=== PATIENT | female | born 1980 | race Caucasian/White ===

== ENCOUNTER 2018-04-11 14:13 | Inpatient (IN) | payer MEDICAID ==
[2018-04-11] MEDS ORDERED: CARBOPROST 250 MCG INJ IM (15:30)
[2018-04-11] MEDS ORDERED: METHYLERGONOVINE 0.2 MG INJ IM (15:30)
[2018-04-11] MEDS ORDERED: LIDOCAINE 1% (MPF) 30 ML INJ INJ (15:30)
[2018-04-11] MEDS ORDERED: OXYTOCIN 30 UNITS/LR 500 ML IV ×2 (15:30)
[2018-04-11] MEDS ORDERED: MISOPROSTOL 200 MCG TAB PR (15:30)
[2018-04-11] MEDS: LACTATED RINGER'S 1,000 ML IV* ×2 (16:10→22:54)
[2018-04-11 16:34] LABS: ADD MAN DIFF? NO
[2018-04-11 16:37] LABS: BASOPHIL # 0.1 10^3/ul (0.0-0.1); BASOPHILS % 0.6 % (0.0-2.0); EOSINOPHILS % 0.3 % (0.0-7.0); HEMATOCRIT 38.7 % (37.0-47.0); HEMOGLOBIN 13.1 g/dl (12.0-16.0); IMMATURE GRANS #M 0.08 10^3/ul; IMMATURE GRANS % (M) 0.6 %; LYMPHOCYTES # 2.6 10^3/ul (0.8-2.9); LYMPHOCYTES % 20.1 % (15.0-51.0); MEAN CORPUSCULAR HEMOGLOBIN 27.6 pg (29.0-33.0); MEAN CORPUSCULAR HGB CONC 33.9 g/dl (32.0-37.0); MEAN CORPUSCULAR VOLUME 81.6 fl (82.0-101.0); MEAN PLATELET VOLUME 9.9 fl (7.4-10.4); MONOCYTE # 0.7 10^3/ul (0.3-0.9); MONOCYTES % 5.7 % (0.0-11.0); NEUTROPHIL # 9.2 10^3/ul (1.6-7.5); NEUTROPHILS % 72.7 % (39.0-77.0); PLATELET COUNT 305 10^3/UL (140-415); RED BLOOD COUNT 4.74 10^6/ul (4.20-5.40); RED CELL DISTRIBUTION WIDTH 15.3 % (11.5-14.5)
[2018-04-11 16:37] LABS: WHITE BLOOD COUNT 12.7 10^3/ul (4.8-10.8)
[2018-04-11 16:58] LABS: INR 0.91; PROTIME 12.3 Sec (11.9-14.9)
[2018-04-11 16:59] LABS: PARTIAL THROMBOPLASTIN TIME 29.9 Sec (25.0-35.0)
[2018-04-11 17:40] LABS: HEPATITIS B SURFACE ANTIGEN NEGATIVE (NEGATIVE)
[2018-04-12] MEDS: LACTATED RINGER'S 1,000 ML IV* ×3 (06:40→23:08)
[2018-04-12] MEDS: OXYTOCIN 30 UNITS/LR 500 ML IV ×6 (09:41→23:30)
[2018-04-12] MEDS: BUTORPHANOL 2 MG INJ IV (14:35)
[2018-04-12 19:14] LABS: RAPID PLASMA REAGIN NONREACTIVE (NR)
[2018-04-13] MEDS: BUTORPHANOL 2 MG INJ IV ×2 (01:45→07:29)
[2018-04-13] MEDS: OXYTOCIN 30 UNITS/LR 500 ML IV ×4 (03:00→18:10)
[2018-04-13] MEDS: LACTATED RINGER'S 1,000 ML IV* ×3 (07:16→10:51)
[2018-04-13] MEDS ORDERED: FENTAnyl 2MCG/ML-ROPIV 0.2% 100 ML (10:19)
[2018-04-13] MEDS ORDERED: KETOROLAC 30 MG INJ IV (10:30)
[2018-04-13] MEDS ORDERED: NALOXONE (0.4 MG/ML) INJ IV (10:30)
[2018-04-13] MEDS ORDERED: ONDANSETRON 4 MG INJ IV ×2 (10:30→16:00)
[2018-04-13] MEDS ORDERED: HYDROmorphONE 0.5 MG/0.5 ML SYG IV ×2 (10:30)
[2018-04-13] MEDS ORDERED: ZOLPIDEM 5 MG TAB PO (10:30)
[2018-04-13] MEDS ORDERED: DIPHENHYDRAMINE 50 MG INJ IV (10:30)
[2018-04-13] MEDS: FENTAnyl 2MCG/ML-ROPIV 0.2% 100 ML BAG EPI (11:17)
[2018-04-13] MEDS ORDERED: ACETAMINOPHEN 325 MG TAB PO (16:00)
[2018-04-13] MEDS ORDERED: DIBUCAINE 1% 30 GM OINT PR (16:00)
[2018-04-13] MEDS ORDERED: OXYCODONE/ASPIRIN (4.88/325) TAB PO ×2 (16:00)
[2018-04-13] MEDS: IBUPROFEN 600 MG TAB PO (18:09)
[2018-04-13] MEDS: LANOLIN 7 GM TUBE TOP (20:15)
[2018-04-13] MEDS: BENZOCAINE 20% 56 ML SPRAY TOP (20:15)
[2018-04-13] MEDS: HYDROCODONE/APAP (5/325) TAB PO (20:15)
[2018-04-13] MEDS: WITCH HAZEL/GLYCERIN PAD PR (20:15)
[2018-04-14] MEDS: IBUPROFEN 600 MG TAB PO ×5 (00:31→23:52)
[2018-04-14] MEDS: HYDROCODONE/APAP (5/325) TAB PO ×2 (02:32→21:12)
[2018-04-14 09:21] LABS: ADD MAN DIFF? NO
[2018-04-14 09:28] LABS: BASOPHIL # 0.1 10^3/ul (0.0-0.1); BASOPHILS % 0.5 % (0.0-2.0); EOSINOPHILS # 0.1 10^3/ul (0.0-0.5); EOSINOPHILS % 0.8 % (0.0-7.0); HEMATOCRIT 35.9 % (37.0-47.0); LYMPHOCYTES # 2.1 10^3/ul (0.8-2.9); MEAN CORPUSCULAR HEMOGLOBIN 27.6 pg (29.0-33.0); MEAN CORPUSCULAR HGB CONC 33.4 g/dl (32.0-37.0); MEAN CORPUSCULAR VOLUME 82.5 fl (82.0-101.0); MEAN PLATELET VOLUME 10.1 fl (7.4-10.4); MONOCYTES % 7.8 % (0.0-11.0); NEUTROPHIL # 9.6 10^3/ul (1.6-7.5); NEUTROPHILS % 73.9 % (39.0-77.0); PLATELET COUNT 264 10^3/UL (140-415); RED BLOOD COUNT 4.35 10^6/ul (4.20-5.40); RED CELL DISTRIBUTION WIDTH 15.4 % (11.5-14.5)
[2018-04-14] MEDS: SENNA/DOCUSATE NA (8.6MG/50MG) TAB PO ×2 (11:49→21:11)
[2018-04-15] MEDS: IBUPROFEN 600 MG TAB PO ×2 (06:34→11:29)
[2018-04-15] MEDS: SENNA/DOCUSATE NA (8.6MG/50MG) TAB PO (08:58)
[2018-04-15] MEDS: MEASLES,MUMPS,RUBELLA VACCINE INJ SC* (09:00)
== END 2018-04-15 13:00 | disposition home or self-care (01) | DRG 775 ==
LOC: OBT 14:13 → PP1 04-13 16:37 → L-D 14:13 → OBT 14:35 → L-D 14:35
PROVIDERS: Obstetrics & Gynecology
PROC: 10E0XZZ Delivery of Products of Conception, External Approach (ICD-10-PCS; principal; 2018-04-13)
PROC: 0HQ9XZZ Repair Perineum Skin, External Approach (ICD-10-PCS; 2018-04-13)
PROC: 3E033VJ Introduction of Other Hormone into Peripheral Vein, Percutaneous Approach (ICD-10-PCS; 2018-04-13)
DX: O70.0 First degree perineal laceration during delivery (principal); O69.81X0 Labor and delivery complicated by cord around neck, without compression, not applicable or unspecified; Z3A.39 39 weeks gestation of pregnancy; Z37.0 Single live birth
CPT/HCPCS: 62319; 85025; 85610; 85730; 86592; 86850; 86900; 86901; 87340; 99464